=== PATIENT | female | born 1955 | race Caucasian/White ===

== ENCOUNTER 2017-04-30 11:44 | Day surgery (SDC) | payer OTHER, BC ==
[2017-04-30] MEDS ORDERED: LIDOCAINE 100 MG SYRINGE (13:20)
[2017-04-30] MEDS ORDERED: PROPOFOL 40 ML (13:20)
== END 2017-04-30 13:54 | disposition home or self-care (01) ==
LOC: GIL 11:44
DX: K21.9 Gastro-esophageal reflux disease without esophagitis (principal); K29.70 Gastritis, unspecified, without bleeding
CPT/HCPCS: 43239; 87081